=== PATIENT | female | born 1995 | race Caucasian/White ===

== ENCOUNTER 2020-12-15 06:27 | Emergency (ER) | payer OTHER, SELFPAY | END 2020-12-15 08:17 | disposition left against medical advice (07) | PROVIDERS: Emergency Provider Emergency Medicine | DX: M25.559 Pain in unspecified hip (principal); M25.519 Pain in unspecified shoulder ==

== ENCOUNTER 2023-03-24 18:42 | Emergency (ER) | payer OTHER, SELFPAY ==
--- NOTE | ~2023-03-24 | US_ITS ---
EXAMINATION: US OBSTETRICAL LIMITED CLINICAL INFORMATION: 16 weeks patient with abdominal pain. COMPARISON: None TECHNIQUE: Real time transabdominal imaging with color and M-mode Doppler. FINDINGS: The initial dating ultrasound obtained at outside facility provided an estimated date of delivery of 09/11/2023. This would project today to a of 15 weeks 4 days. There is a single intrauterine . POSITION: Longitudinal lie with cephalic presentation. PLACENTA: Anterior in location AMNIOTIC FLUID: Appears appropriate for the gestational age. CARDIAC ACTIVITY: 140 bpm CERVIX: Cervical length is 3.2 cm. Cervix is closed. Maternal right ovary is normal in appearance measuring 2.3 x 1.3 x 2.8 cm. Maternal left ovary measures 3.3 x 2.3 x 2.1 cm. A 1.6 x 1.5 x 1.8 cm corpus luteal cyst is noted in the left ovary. There is no evidence of adnexal mass or free fluid. US/US OB limited IMPRESSION: A single live intrauterine with anterior placenta.
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
[2023-03-24 18:51] VITALS: BP 130/73; PULSE 95; RESP 18; TEMP 36.1; O2SAT 98; BMI 45.3
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
[2023-03-24 19:35] LABS: MANUAL DIFF FLAG NO
[2023-03-24 19:36] LABS: Basophils Percent Auto 0.2 % (0-2); Eosinophils Absolute Auto 0.2 X10*3/uL (0.0-0.4); Eosinophils Percent Auto 2.9 % (0-4); Hematocrit 35.1 % (37.0-47.0); Hemoglobin 11.9 g/dl (12.0-16.0); Imm Gran Abs Auto 0.02 X10*3/uL (0.00-0.03); Imm Gran Pct Auto 0.3 % (0.0-0.4); Lymphocytes Absolute Auto 1.6 X10*3/uL (1.2-4.9); Lymphocytes Percent Auto 23.8 % (20-40); Mean Corpuscular HGB Conc 33.9 g/dl (31.0-35.0); Mean Corpuscular Hemoglobin 27.7 pg (27.0-33.0); Mean Corpuscular Volume 81.6 fL (80.0-98.0); Mean Platelet Volume 9.5 fL (9.4-12.3); Monocytes Absolute Auto 0.3 X10*3/uL (0.1-1.2); Monocytes Percent Auto 4.5 % (2-11); Neutrophils Absolute Auto 4.5 x10*3/uL (2.0-8.3); Neutrophils Percent Auto 68.3 % (45-73); Platelet Count 194 X10*3/uL (160-400); Red Cell Distribution Width 12.8 % (11.0-16.0); White Blood Count 6.6 X10*3/uL (4.8-10.8)
[2023-03-24 19:56] LABS: Alanine Aminotransferase 26 U/L (0-31); Albumin Level 3.7 g/dL (3.5-5.0); Alkaline Phosphatase 72 U/L (39-117); Anion Gap 13 (12-20); Aspartate Amino Transferase 20 U/L (5-31); Bilirubin Total 0.3 mg/dL (0.0-1.0); Blood Urea Nitrogen 8 mg/dL (9-16); Calcium 9.1 mg/dL (8.4-10.2); Carbon Dioxide 23 mmol/L (22-29); Chloride 106 mmol/L (96-108); Creatinine Clr Calc Pharmacy 127.3; Estimated Glomerular Filt Rate > 60; Glucose Random 86 mg/dL (60-115); Lipase 15 U/L (8-78); Potassium 3.3 mmol/L (3.3-5.1); Sodium 139 mmol/L (135-145); Total Protein 6.4 g/dL (6.5-8.0)
[2023-03-24 20:13] LABS: HCG Quantitative 19700 mIU/mL
--- NOTE | 2023-03-24 21:03 | PC.NURSE ---
RNs looked for heart sounds with the doppler. A faint heart rate of 154 was found, as long as a strong heart rate of 90-100. JOYCE ayers.
[2023-03-24 21:06] VITALS: BP 110/61; PULSE 87; TEMP 36.8; O2SAT 99
[2023-03-24 21:18] LABS: Appearance Urine Cloudy; Color Urine Dark Yellow; Glucose Urine UA Negative (Negative); Leukocyte Esterase Urine Negative (Negative); Nitrite Urine Negative (Negative); PH 5.5 (5.0-9.0); Specific Gravity - Urine >= 1.030 (1.005-1.025); Urine Blood Negative (Negative); Urine Ketones Trace mg/dL (Negative); Urine Protein Trace mg/dL (Neg-Trace)
[2023-03-24 21:20] LABS: Bacteria Urine 3+ (None Seen); Hyaline Casts Urine 0-2 /LPF (0-2); RBC Urine 0-2 /HPF (0-2); WBC Urine 0-5 /HPF (0-5)
[2023-03-24] MEDS: Acetaminophen 325 MG TABLET 650 MG PO (21:27)
== END 2023-03-24 21:37 | disposition home or self-care (01) ==
PROVIDERS: Physician Assistant; Emergency Provider Internal Medicine
DX: Z04.1 Encounter for examination and observation following transport accident (principal); O26.892 Other specified pregnancy related conditions, second trimester; R10.30 Lower abdominal pain, unspecified; M54.50 Low back pain, unspecified; Z3A.15 15 weeks gestation of pregnancy
CPT/HCPCS: 36415; 76815; 80053; 81001; 83690; 84702; 85025; 86850; 86900; 86901; 99283; 99284

== ENCOUNTER 2023-03-26 10:38 | Emergency (ER) | payer OTHER, SELFPAY ==
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
[2023-03-26 11:17] VITALS: BP 109/70; PULSE 78; RESP 18; TEMP 36.7; O2SAT 99; BMI 43.7
--- NOTE | 2023-03-26 11:42 | MHC.EDTECH ---
@1136am JOYCE GONZALEZ REQUESTS CALL OUT TO [facility] [place] LINE HÉCTOR ANSWERS,TAKES PT INFO THEN ASKS TO SPEAK WITH LISA GONZALEZ TAKES OVER CALL RIGHT AWAY
--- NOTE | 2023-03-26 12:14 | MHC.EDTECH ---
@12:13PM CALL RECEIVED FROM [facility] [place] ASKING TO SPEAK WITH LISA GONZALEZ TAKES OVER CALL RIGHT AWAY
[2023-03-26 13:14] LABS: COVID-19 Test Negative (Negative); IDNOW Serial# BCCEAD1C
[2023-03-26 14:43] VITALS: BP 114/66; PULSE 79; RESP 13; TEMP 36.8; O2SAT 99
--- NOTE | 2023-03-26 14:49 | PC.NURSE ---
pt transferred via [facility]
== END 2023-03-26 14:51 | disposition short-term general hospital (02) ==
PROVIDERS: Nurse Practitioner Family; Emergency Provider Student in an Organized Health Care Education/Training Program
DX: O26.92 Pregnancy related conditions, unspecified, second trimester (principal); R10.9 Unspecified abdominal pain; M54.50 Low back pain, unspecified; Z3A.17 17 weeks gestation of pregnancy; Z20.822 Contact with and (suspected) exposure to COVID-19; Z20.828 Contact with and (suspected) exposure to other viral communicable diseases
CPT/HCPCS: 87635; 99285

== ENCOUNTER 2025-01-10 18:59 | Emergency (ER) | payer OTHER, SELFPAY ==
--- NOTE | ~2025-01-10 | XR_ITS ---
CLINICAL HISTORY: pain swelling. inj 1mos ago 3 view right foot Comparison: None Findings: Accessory ossicle adjacent to the cuboid. No significant loss of joint space, osteophytes, or erosions. No radiopaque foreign body. Mildly diffuse soft tissue swelling. IMPRESSION: 1. No acute fracture. This document has been electronically signed by: Derek Oscar MD on 01/10/2025 20:04:07
--- NOTE | ~2025-01-10 | XR_ITS ---
CLINICAL HISTORY: pain swelling. inj 1mos ago 3 view right ankle Comparison: None Findings: No acute fractures. Ankle mortise intact. No significant arthritic change or erosions. No ankle effusion. No radiopaque foreign body. Mildly diffuse soft tissue swelling. IMPRESSION: 1. No acute fracture. This document has been electronically signed by: Derek Oscar MD on 01/10/2025 20:06:07
[2025-01-10 19:16] VITALS: BP 125/78; PULSE 88; RESP 16; TEMP 36.1; O2SAT 98; BMI 41.6
--- NOTE | 2025-01-10 19:16 | ED.LOWEXIN ---
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 She reports pain localized over the right ankle just distal to the lateral malleolus with swelling. She did not take any medications for this and reports that she has had ?an upset stomach in the past? with NSAID therapy. She denies any numbness or weakness foot. Denies any other injuries pain of the knee or hip. Related Data Previous Rx's ?Medication ?Instructions ?Recorded lidocaine 4 % topical patch 1 patch topical DAILY PRN pain #30 01/10/25 ea prednisone 50 mg tablet 50 mg PO DAILY 5 days #5 tabs 01/10/25 Allergies Allergy/AdvReac Type Severity Reaction Status Date / Time No Known Allergies Allergy Verified 01/10/25 19:19 Review of Systems Review of Systems: Yes all other systems are reviewed and are negative [facility] Social History Social History Advance Directives: No Advance Directives Information Provided: No Do you have a plan to hurt others: No Plan Physical Exam Vital Signs: Vital Signs: Last Vital Signs Temp 96.9 F 01/10/25 19:16 Pulse 88 01/10/25 19:16 Resp 16 01/10/25 19:16 BP 125/78 01/10/25 19:16 Pulse Ox 98 01/10/25 19:16 O2 Del Method Room Air 01/10/25 19:16 BMI result Body Mass Index 41.6 Constitutional: ?Alert, oriented, speaking in full sentences HEENT: ?Normocephalic, atraumatic. Cardio: 2+ DP pulses symmetrically Skin: ?No rash, no lesions Neuro: ?Alert and oriented to person, place and time, moves all 4 extremities, no focal deficits, 5/5 strength and sensation fully intact of the bilateral lower extremities Extremities: There is full range of motion of the right ankle although with some pain against resistance with inversion, adduction of the right foot and dorsiflexion. There is also swelling located over the distal aspect of the right foot specifically over the anterior talofibular ligament/cuboid. No crepitus. No overlying skin changes. No tenderness over the medial or lateral malleoli. No tenderness to squeeze proximally of the tibia against the fibula of the right lower extremity. Psych: ?Calm, alert and cooperative, appropriate behavior Course Course Course Narrative: This is a Rapid Medical Exam performed in triage by Janice Holloway PA-C. Full HPI, ROS and PE to be performed by primary ED provider. 29 yo F presenting to the ED c/o right foot pain x few months s/p kicking something. States now cannot walk x few hours PE: R foot with mild swelling, +ttp to lateral ankle & dosal aspect foot. NV intact. no deformity Plan: XR Medical Decision Making Medical Decision Making MDM Narrative: Patient presenting with an acute on chronic right ankle injury. There is no suspicion for fracture clinically and x-ray imaging of the right foot and ankle per my independent interpretation shows no acute fracture or dislocation. No acute abnormalities noted on radiology report. The patient is unable to bear full weight secondary to pain and will be treated with 1 dose of IM ketorolac here. Given her intolerance to NSAID therapy in general, she accepts offered steroid burst to start tomorrow and has been instructed to apply a lidocaine patch or ice. She is not requiring a splint at this time but we will place an air cast and provide crutches for support as well as a work note hand wrapped the ankle in an Jb bandage. The patient will follow up with her primary care provider and possibly an computer customer support specialist if the pain does not improve over the course of a week or 2. She has no findings consistent with neurovascular compromise. Return precautions provided. Discharge Plan Discharge Clinical Impression: Right ankle sprain Qualifiers: Encounter type: initial encounter Involved ligament of ankle: anterior talofibular ligament Qualified Code(s): S93.491A - Sprain of other ligament of right ankle, initial encounter Patient Disposition: Home, Self-Care Instructions: Ankle Sprain (ED), Cast Care (ED), Crutch Instructions (ED) Additional Instructions: Apply ice 20 minutes at a time several times a day. You can also try Lidoderm patch and leaving this on for 12 hours at a time, applying a new patch the next day. You can pick this up at the pharmacy. We also prescribed a short course of steroids to help with inflammation. Take the next dose in the morning. Wear the air cast when walking and use the crutches as needed. Follow up with your primary care provider for re-evaluation and possibly an computer customer support specialist if your pain does not improve in the next 1-2 weeks. Prescriptions: New lidocaine 4 % adhesive patch,medicated 1 patch topical DAILY PRN (Reason: pain) Qty: 30 0RF prednisone 50 mg tablet 50 mg PO DAILY 5 Days Qty: 5 0RF Stand Alone Forms: Work/School Release Print Language: Emirati
[2025-01-10 21:07] VITALS: BP 127/84; PULSE 76; RESP 16; TEMP 36.6; O2SAT 99
[2025-01-10] MEDS: Ketorolac Tromethamine 15 MG/ML VIAL IM (21:22)
[2025-01-10 21:30] VITALS: BP 127/84; PULSE 76; RESP 16; TEMP 36.6; O2SAT 99
== END 2025-01-10 21:30 | disposition home or self-care (01) ==
PROVIDERS: Emergency Provider Emergency Medicine
DX: S93.401A Sprain of unspecified ligament of right ankle, initial encounter (principal); X50.1XXA Overexertion from prolonged static or awkward postures, initial encounter; Y93.9 Activity, unspecified; Y92.9 Unspecified place or not applicable; Y99.9 Unspecified external cause status
CPT/HCPCS: 73610; 73630; 96372; 99284; J1885

== ENCOUNTER → 2025-01-10 19:17 | Outpatient (BNV) | payer OTHER, SELFPAY | PROVIDERS: Emergency Provider Emergency Medicine; Visit Provider Radiology Diagnostic Radiology | DX: M25.571 Pain in right ankle and joints of right foot (principal) | CPT/HCPCS: 73610; 73630 ==

== ENCOUNTER 2025-10-31 23:20 | Emergency (ER) | payer OTHER, SELFPAY ==
[2025-10-31 23:22] VITALS: BP 107/66; PULSE 92; RESP 16; TEMP 36.8; O2SAT 97; BMI 40.6
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
--- OUTSIDE RECORDS SUMMARY | 2025-11-01 00:37 | XMS_ITS | Clinical Summary ---
Author Organization [facility] [address] [place] [address] Address [address] [place] [address] Phone Care Team Providers Care Nipple Threader Name Role Phone Dipti Brandt MD Primary Care Prov ider Allergies Active Allergy Reactions Criticality Noted Date Comments Naproxen GI intolerance Medium 06/24/2021 Medications hydroxychloroqu ine (PLAQUENIL) 200 mg tablet daily. 4 Active meloxicam (MOBIC) 7.5 mg tablet Take 1 tablet (7.5 mg total) by mouth 1 (one) time each day. 5 Active norethindrone-e thinyl estradiol-iron (MICROGESTIN FE1.5/30) 1.5 mg-30 mcg (21)/75 mg (7) per tablet Take 1 tablet by mouth 1 (one) time each day. 28 tablet 11 5 06/11/20 26 Active diclofenac (VOLTAREN) 1 % topical gelIndications: Acute right ankle pain APPLY 2 GRAM TOPICALLY FOUR TIMES DAILY TO AFFECTED JOINT 100 g 1 5 Active Active Problems Problem Noted Date Diagnosed Date Ventricular septal defect 04/09/2025 Overview (04/09/2025): Last saw Cardio/Dr. 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 SBE prophylaxis is no longer recommended, I therefore have not suggested any further cardiology follow-up or work-up. 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 On/off synovitis. Treated with NSAID's when needed 11/2020: More persistent synovitis 02/2021: Hydroxychloroquine star Anxiety 06/06/2017 Allergic rhinitis 08/14/2016 Asthma 08/14/2016 VSD (ventricular septal defect), muscular 2015 Overview (10/27/2024): Small, felt closed by cardiology 2011 Encounters Date Type Department Care Team Description 09/02/2025 Telephone Obstetrics & Gynecology - [address] [phone] Angelo Gray CNM from Last 3 Months Immunizations Immunization Administration Dates Next Due DTaP (Infanrix) 6wks to less than 7yo ,05/10/1999,04/12/1998,02/10,1997 [id number] (Pentacel) 2mo to less than 5yo 05/10/1999,04/12/1998,02/10/1998,11/12 HPV, Quadrivalent 12/15/2014,08/12/2014,07/01/20 14 Hepatitis A Pediatric (Havri x; Vaqta) 12mo to less than 19yo 08/04/2015,07/01/2014 Hepatitis B Pediatric (Enger ix B; Recombivax HB) to less than 20 yo 08/04/2015,07/13/1998,1997 IPV Inactivated polio (Ipol) 6wks and older 09/17/2001,04/12/1998,02/10/1998,11/12 Influenza Quadravalent, MDCK , 0.5ml, preservative free (Flucelvax) 6mo and older 11/13/2018 Influenza trivalent, 0.5mL, preservative free (Fluarix; FluLaval; Fluzone) ages 6mo and older (Afluria) 3 years and older 10/11/2006,08/26/2006,08/29/2005,09/06,10/01/2001,09/28/2000,08/18/2000 MMR, measles mumps and rubel la Live (Priorix; M-M-R II) 12mo and older 09/27/2019,09/17/2007,11/12/1998 Meningococcal MCV4P 08/04/2015,12/16/2009 Tdap Tetanus diptheria acell ular pertussis (Boostrix; Adacel) 7yo and older 06/25/2023,10/11/2022,07/11/2019,12/16 Varicella live (Varivax) 12m o and older 12/16/2009,11/12/1998 Surgical History Surgery Date Site/Laterality Comments TYMPANOSTOMY TUBE PLACEMENT PROCEDURE: HISTORICAL PE TUBES WISDOM TOOTH EXTRACTION PROCEDURE: HISTORICAL WISDOM TEETH EXTRACTION TONSILLECTOMY PROCEDURE: HISTORICAL TONSILLECTOMY Medical History Medical History Date Comments Depression DX:Depression Murmur, cardiac childhood DX:Murmur, cardi ac; COMMENT: closed on its own VSD (ventricular septal defe ct), muscular 08/14/2016 DX:VSD (ventricular septal d efect), muscular; COMMENT: small Allergic rhinitis 08/14/2016 DX:Allergic rh initis Asthma 08/14/2016 DX:Asthma Family History Medical History Relation Name Comments No Known Problems Daughter Atrial fibrillation Father Hypertension Father Colon cancer Father's side cousin No Known Problems Maternal Grandmother Hypertension Mother Depression Mother's side Colon cancer Paternal Grandfather at 54 Arthritis Paternal Grandmother Cardiomyopathy Paternal Grandmother Diabetes Paternal Grandmother No Known Problems Sister 1 Sleep apnea Sister 2 No Known Problems Sister 3 No Known Problems Son Thyroid disease Uncle Breast cancer Neg Hx Ovarian cancer Neg Hx Uterine cancer Neg Hx Relation Name Status Comments Daughter Alive Father Alive Father's side cousin Alive Maternal Grandfather Maternal Grandmother Mother Alive Mother's side Other Paternal Grandfather Paternal Grandmother Sister 1 Alive Sister 2 Alive Sister 3 Alive Son Alive Uncle Alive Social History Tobacco Use Types Packs/Day Years Used Date Smoking Tobacco: Never Smokeless Tobacco: Never Tobacco Cessation:Counseling Given: Not Answered Alcohol Use Standard Drinks/Week Comments No 0 (1 standard drink = 0.6 oz pur e alcohol) Housing Instability Answer Date Recorde d Are you worried that in the next 2 months you may not have stable housing? No 04/09/2025 Food Access & Nutrition Answer Date Rec orded Do you have access to a vari ety of food including fruits and vegetables? Yes 04/09/2025 Access to Healthcare Answer Date Record ed Within the last 3 months, ho w many times did you visit the emergency department for your medical care? 1 04/09/2025 Health Literacy Answer Date Recorded How often do you need to hav e someone help you when you read instructions, pamphlets, or other written material from your doctor or pharmacy? Never 04/09/2025 Caregiver: How often do you need to have someone help you when you read instructions, pamphlets, or other written material from your doctor or pharmacy? Not on file 04/09/2025 Financial Risk Answer Date Recorded How hard is it for you to pa y for the very basics like food, housing, medical care, and air conditioning / heating? Not very hard 04/09/2025 Transportation Answer Date Recorded Has the lack of transportati on kept you from meetings, work, or from getting things needed for daily living? No Has the lack of transportati on kept you from medical appointments or from getting medications? No 04/09/2025 Social Isolation Answer Date Recorded How often do you feel lonely or isolated from th ose around you? Never 04/09/2025 Food Risk Answer Date Recorded Within the past 12 months we worried whether our food would run out before we got money to buy more. Never true 04/09/2025 Within the past 12 months th e food we bought just didn't last and we didn't have money to get more. Never true 04/09/2025 Dependent Care Answer Date Recorded Do you need help finding or paying for care for your loved ones. For example, child development instructor or elderly care for an older adult? No 04/09/2025 Education Answer Date Recorded Do you think completing more education or training, like finishing a GED, going to college, or learning a trade, would be helpful for you? No 04/09/2025 Employment and Income Answer Date Recor ded During the last four weeks, have you been actively looking for work? No 04/09/2025 Living Situation Answer Date Recorded What is your living situation? Unrecognized valu e 04/09/2025 Comments No Sex and Gender Information Value Date Recorded Sex Assigned at Not on file Legal Sex Female 11:40 PM EST Gender Identity Not on file Sexual Orientation Not on file Obstetrics History Para Term AB IAB SAB Ectopic Multiple Livin g Live Births 2 2 2 0 0 0 2 2 Date Outcome GA Total Labor Labor/2nd/3rd Weight Sex Type Anes PTL Joanna A1 A5 Name Clin 2018 Term M CS-Un spec Living 2022 Term F Living Last Filed Vital Signs Vital Sign Reading Time Taken Comments Blood Pressure 106/77 06/12/2025 10:18 AM EDT Pulse 81 06/12/2025 10:18 AM EDT Temperature 36.3 C (97.3 F) 05/27/2025 9:16 AM EDT Respiratory Rate 15 04/09/2025 10:16 AM EDT Oxygen Saturation 98% 02/24/2025 9:39 AM EDT Inhaled Oxygen Concentration - - Weight 99.8 kg (220 lb) 06/12/2025 10:18 AM EDT Height 154.9 cm (5' 1 ) 05/27/2025 9:16 AM EDT Body Mass Index 41.57 05/27/2025 9:16 AM EDT Plan of Treatment Upcoming Encounters Date Type Department Care Team (Late st Contact Info) Description 04/16/2026 2:00 PM EDT Office Visit Adult Medicine [address] [phone] Dipti Brandt MD [address] [place] [address] Health Maintenance Due Date Last Done Comments Influenza Vaccine (#1) 2025 9, 10/11/2006, 08/26/2006, Additional history exists Social Influencers of Health Screening 04/09/2026 04/09/2025 Cervical Cancer Screening: Pap Smear 06/05/2027 06/05/2024, 06/05/2024, 03/17/2021 Cholesterol Screening (Lipid Panel) 04/13/2030 04/13/2025, 06/23/2024, 06/23/2024 DTaP,Tdap,and Td Vaccines (10 - Td or Tdap) 06/25/2033 06/25/2023, 10/11/2022, 07/11/2019, Additional history exists RSV Immunization Adult Patients (1 - 1-dose 75+ series) 2072 HIB Vaccines Completed 05/10/1999, 11/1997, 02/10/1998, Additional history exists IPV Vaccines Completed 09/17/2001, 04/13, 04/12/1998, Additional history exists Varicella Vaccines Completed 12/16/2009, 11/12/1998 HPV Vaccines Completed 12/15/2014, 11/2013, 07/01/2014 Hepatitis A Vaccines Completed 08/04/2015, 07/01/20 14 Hepatitis B Vaccines Completed 08/04/2015, 07/13/1998, 1997 Meningococcal ACWY Vaccine Completed 08/04/2015, MMR Vaccines Completed 09/27/2019, 04/2007, 11/12/1998 COVID-19 Vaccine Discontinued 01/09/2022, , 07/19/2021 Depression Screening Completed 04/09/2025, 03/27/20 24 HIV Screening Completed 04/13/2025, 06/12, 06/23/2024, Additional history exists Hepatitis C Screening Completed 04/13/2025, 024 Meningococcal B Vaccine Aged Out No l onger eligible based on patient's age to complete this topic Pneumococcal Vaccine: Pediatrics (0 to 5 Years) and At-Risk Patients (6 to 49 Years) Discontinued RSV Immunization Patients Under 20 months Aged Out No longer eligible based on patient's age to complete this topic Procedures Procedure Name Priority Date/Time Associated Diagnosis Comments HEPATITIS C ANTIBODY Routine 04/13/2025 10:16 AM EDT Screen for STD (sexually transmitted disease) HIV 1, 2 ANTIBODY, P24 ANTIGEN WITH REFLEX TO DIFFERENTIATION Routine 04/13/2025 10:16 AM EDT Screen for STD (sexually transmitted disease) LIPID PANEL WITH REFLEX TO DIRECT LDL Routine 04/13/2025 10:16 AM EDT Screening for cardiovascular condition HM PAP SMEAR Routine 06/05/2024 DEPRESSION SCREENING Routine 03/27/2024 from Last 3 Months or Most Recently Relevant to Health Maintenance Results * Hepatitis C antibody (04/13/2025 10:16 AM EDT) Hepatitis C Antibody Negative Negative LAB CHEMISTRY METHOD 04/13/2025 5:09 PM EDT [facility] Blood Venous blood specimen / Unknown Venipuncture / Unknown 04/13/2025 10:16 AM EDT 04/13/2025 10:16 AM EDT Jocelyne COOK LAB BLOOD ORDERABLES Final Resu lt [facility] [address] [place] [address], [place] [phone] * HIV 1,2 antibody, p24 antigen with reflex to differentiation (04/13/2025 10:16 AM EDT) [facility] HIV Combo AB/AG Negative Negative LAB CHEMISTRY METHOD 04/13/2025 5:09 PM EDT [facility] Blood Venous blood specimen / Unknown Venipuncture / Unknown 04/13/2025 10:16 AM EDT 04/13/2025 10:16 AM EDT Narrative [facility] - 04/13/2025 5:09 PM EDT This assay is a 4th generation assay allowing for earlier detection of HIV infection by detecting the presence of the HIV-1 p24 antigen as well as the traditional antibodies to HIV type 1 (including group O) and type 2. Use of a 4th generation assay is the current CDC recommendation for HIV screening. Jocelyne COOK LAB BLOOD ORDERABLES Final Resu lt [facility] [address] [place] [address], * Lipid panel with reflex to direct LDL (04/13/2025 10:16 AM EDT) Cholesterol 136 0 - 200 mg/dL LAB CHEMISTRY METHOD 04/13/2025 3:17 PM EDT [facility] Triglycerides 72 0 - 150 mg/dL LAB CHEMISTRY METHOD 04/13/2025 3:17 PM EDT [facility] HDL 60 >=40 mg/dL LAB CHEMISTRY METHOD 04/13/2025 3:17 PM EDT [facility] LDL Calculated 62 0 - 100 mg/dL LAB CHEMISTRY METHOD 04/13/2025 3:17 PM EDT [facility] VLDL Cholesterol Nate 14.4 mg/dL LAB CHEMISTRY METHOD 04/13/2025 3:17 PM EDT [facility] Non HDL Chol. (LDL+VLDL) 76 <145 mg/dL LAB CHEMISTRY METHOD 04/13/2025 3:17 PM EDT [facility] Chol/HDL Ratio 2.3 0.0 - 4.4 LAB CHEMISTRY METHOD 04/13/2025 3:17 PM EDT [facility] Blood Venous blood specimen / Unknown Venipuncture / Unknown 04/13/2025 10:16 AM EDT 04/13/2025 10:16 AM EDT Jocelyne COOK LAB BLOOD ORDERABLES Final Resu lt [facility] [address] [place] [address], [place] [phone] * Pap Smear (06/05/2024) Pap smear negative, abstracted Historical Provider HEALTH MAINTENANCE Final Result * Depression Screening (03/27/2024) Depression Screening Abstracted us Historical Provider HEALTH MAINTENANCE Final Result from Last 3 Months or Most Recently Relevant to Health Maintenance Insurance MEDICAID - [place] Care Teams Nipple Threader Relationship Specialty Start Date End Date Dipti Brandt MD [address] [place] [address] PCP - General Internal Medicine 07/31/22
--- OUTSIDE RECORDS SUMMARY | 2025-11-01 00:37 | XMS_ITS ---
Author Name [facility] Organization Unknown Care Team Organization Name Specialty Phone Email Start Date End Da te [facility] Dipti Peterson Primary Care 01/17/2023 06/30/2024 [facility] Jessica De Leon Primary Care 09/19/20222023
--- OUTSIDE RECORDS SUMMARY | 2025-11-01 00:37 | XMS_ITS | Clinical Summary ---
Author Organization [employer] Address [address] [place] [address] Care Team Providers Care Director Dental Services Name Role Phone Unavailable Primary Care Provider Unavailabl e Encounters Date Type Department Care Team Description 09/01/2025 Population Health Risk Score [facility] (C3) Department [address] [phone] Provider, Population Health Generic from Last 3 Months Social History Tobacco Use Types Packs/Day Years Used Date Smoking Tobacco: Never Assessed Comments Unknown Sex and Gender Information Value Date Recorded Sex Assigned at Female 09/11/2022 10:15 AM EDT Legal Sex Female 10:15 AM EDT Gender Identity Not on file Sexual Orientation Straight 09/11/2022 10 :15 AM EDT Plan of Treatment Health Maintenance Due Date Last Done Comments Depression Screening 1997 Disability Screening 1997 Alcohol/Substance Use Screening 2009 Tobacco Screening 2009 Family Planning (PISQ) 2012 Pap Smear 2018 COVID-19 Vaccine ( season) 2025 01/09/2022, 08/09/2021, 07/19/2021 Influenza Vaccine (#1) 2025 , 11/13/2018, 10/11/2006, Additional history exists DTaP/Tdap/Td Vaccines (10 - Td or Tdap) 06/25/2033 06/25/2023, 10/11/2022, 07/11/2019, Additional history exists Zoster Vaccines (1 of 2) 2047 RSV Patients and Patients Aged 60 years or older (1 - 1-dose 75+ series) 2072 HIB Vaccines Completed 05/10/1999, 2 07/1999, 04/12/1998, Additional history exists IPV Vaccines Completed 09/17/2001, 04/13, 04/12/1998, Additional history exists HPV Vaccines Completed 12/15/2014, 10/0 11/2013, 07/01/2014 Hepatitis A Vaccines Completed 08/04/2015, 07/01/20 14 Hepatitis B Vaccines Completed 08/04/2015, 07/13/1998, 1997 Meningococcal Vaccine Completed 08/04/2015, 010 Meningococcal B Vaccine Aged Out No l onger eligible based on patient's age to complete this topic Pneumococcal Vaccine: Pediatrics (0 to 5 Years) and At-Risk Patients (6 to 49) Years Aged Out No longer eligible based on patient's age to complete this topic RSV under 20 months Aged Out No longe r eligible based on patient's age to complete this topic Rotavirus Vaccines Aged Out No longer eligible based on patient's age to complete this topic
[2025-11-01 00:48] VITALS: BP 106/60; PULSE 85; RESP 18; TEMP -17.7; TEMP 0; O2SAT 98
== END 2025-11-01 00:49 | disposition home or self-care (01) ==
PROVIDERS: Emergency Provider Student in an Organized Health Care Education/Training Program; PCP Internal Medicine
DX: S13.4XXA Sprain of ligaments of cervical spine, initial encounter (principal); S29.012A Strain of muscle and tendon of back wall of thorax, initial encounter; V43.51XA Car driver injured in collision with sport utility vehicle in traffic accident, initial encounter; Y93.89 Activity, other specified; Y92.414 Local residential or business street as the place of occurrence of the external cause; Y99.9 Unspecified external cause status
CPT/HCPCS: 99283; 99284

== ENCOUNTER 2025-11-08 20:26 | Emergency (ER) | payer OTHER, SELFPAY ==
[2025-11-08 20:32] VITALS: BP 110/69; PULSE 83; RESP 16; TEMP 36; O2SAT 98; BMI 41.6
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
--- OUTSIDE RECORDS SUMMARY | 2025-11-09 00:23 | XMS_ITS | Clinical Summary ---
Author Organization [facility] [address] [place] [address] Address [address] [place] [address] Phone Care Team Providers Care Draw Frame Operator Name Role Phone Dipti Brandt MD Primary [...] this time, it is my impression that, Brenton's VSD is most likely closed but even [...] Encounters Date Type Department Care Team Description 11/03/2025 Telephone Adult Medicine [address] [phone] Dipti Brandt MD 09/02/2025 Telephone Obstetrics & Gynecology [address] [phone] Angelo Gray CNM from Last 3 Months Immunizations Immunization Administration Dates Next Due DTaP (Infanrix) 6wks to less than 7yo ,05/10/1999,04/12/1998,02/10,1997 [id number] (Pentacel) 2mo to less than 5yo 05/10/1999,04/12/1998,02/10/1998,11/12 [...] care for your loved ones. For example, early childhood associate or elderly care for an older adult? [...] 2 2 Date Outcome GA Total Labor Labor//3rd Weight Sex Type Anes PTL Joanna A1 [...] Care Team (Late st Contact Info) Description 11/26/2025 8:00 AM EST Office Visit Adult Medicine [address] [phone] Alysa De La Torre PA [address] [place], [place] 04/16/2026 2:00 PM EDT Office Visit Adult Medicine [address] [phone] Dipti Brandt MD [address] [place] [phone] Health Maintenance Due Date Last Done Comments [...] cardiovascular condition HM PAP SMEAR Routine 06/05/2024 HM DEPRESSION SCREENING Routine 03/27/2024 from Last 3 Months or Most Recently Relevant to Health Maintenance Results * Hepatitis C antibody (04/13/2025 10:16 AM EDT) Hepatitis C Antibody Negative Negative LAB CHEMISTRY METHOD 04/13/2025 5:09 PM EDT [facility] Blood Venous blood specimen / Unknown Venipuncture / Unknown 04/13/2025 10:16 AM EDT 04/13/2025 10:16 AM EDT us Jocelyne COOK LAB BLOOD ORDERABLES Final Resu lt [facility] [address] [place] [address], [place] [phone] * HIV 1,2 antibody, p24 antigen with reflex to differentiation (04/13/2025 10:16 AM EDT) HIV Combo AB/AG Negative Negative LAB CHEMISTRY METHOD 04/13/2025 5:09 PM EDT [facility] Blood Venous blood specimen / Unknown Venipuncture / Unknown 04/13/2025 10:16 AM EDT 04/13/2025 10:16 AM EDT Narrative [facility] - 04/13/2025 5:09 PM EDT This assay is a 4th generation assay allowing for earlier detection of HIV infection by detecting the presence of the HIV-1 p24 antigen as well as the traditional antibodies to HIV type 1 (including group O) and type 2. Use of a 4th generation assay is the current CDC recommendation for HIV screening. us Jocelyne COOK LAB BLOOD ORDERABLES Final Resu lt [facility] [address] [place] [address], [place] [phone] * Lipid panel with reflex to direct LDL (04/13/2025 10:16 AM EDT) Cholesterol 136 0 - 200 mg/dL LAB CHEMISTRY METHOD 04/13/2025 3:17 PM EDT [facility] Triglycerides 72 0 - 150 mg/dL LAB CHEMISTRY METHOD 04/13/2025 3:17 PM EDT [facility] HDL 60 >=40 mg/dL LAB CHEMISTRY METHOD 04/13/2025 3:17 PM EDT [facility] LDL Calculated 62 0 - 100 mg/dL LAB CHEMISTRY METHOD 04/13/2025 3:17 PM [facility] VLDL Cholesterol Nate 14.4 mg/dL LAB CHEMISTRY METHOD 04/13/2025 3:17 PM T [facility] Non HDL Chol. (LDL+VLDL) 76 <145 mg/dL LAB CHEMISTRY METHOD 04/13/2025 3:17 PM T [facility] Chol/HDL Ratio 2.3 0.0 - 4.4 LAB CHEMISTRY METHOD 04/13/2025 3:17 PM [facility] Blood Venous blood specimen / Unknown Venipuncture / Unknown 04/13/2025 10:16 AM EDT 04/13/2025 10:16 AM EDT Jocelyne COOK LAB BLOOD ORDERABLES Final [facility]u lt [facility] [address] [place] [address], [place] [phone] * Pap Smear (06/05/2024) Pap smear negative, abstracted Historical Provider MD HEALTH MAINTENANCE Final Result * Depression Screening (03/27/2024) Depression Screening Abstracted Historical Provider HEALTH MAINTENANCE Final Result from Last 3 Months or Most Recently Relevant to Health Maintenance Insurance [id number] [employer] Care Teams Draw Frame Operator Relationship Specialty Start Date End Date Dipti Brandt MD [address] [place] [address] PCP - General Internal Medicine 07/31/22
== END 2025-11-09 00:22 | disposition left against medical advice (07) ==
PROVIDERS: Emergency Provider Emergency Medicine; PCP Internal Medicine
DX: M54.50 Low back pain, unspecified (principal); R51.9 Headache, unspecified
CPT/HCPCS: 99281